=== PATIENT | female | born 1970 | race Caucasian/White ===

== ENCOUNTER 2018-09-25 17:04 | Emergency (ER) | payer OTHER ==
[~2018-09-25] VITALS: Ht 152.4 cm; Wt 56.7 kg
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
--- NOTE | 2018-09-25 17:28 | NUR ---
DR CURTIS AT BEDSIDE
[2018-09-25] MEDS ORDERED: HYDROCODONE/APAP 5/325MG 1 EACH TABLET ONE (17:43)
[2018-09-25] MEDS ORDERED: CLINDAMYCIN HCL 150 MG CAPSULE PO ONE ×2 (17:43→18:00)
[2018-09-25] MEDS ORDERED: HYDROCODONE/APAP 5/325MG 1 EACH TABLET PO ONE (18:00)
[2018-09-25 18:19] VITALS: BP 142/98
--- NOTE | 2018-09-25 18:19 | NUR ---
Patient discharged to home in stable condition. Written and verbal after care instructions given. Patient verbalizes understanding of instruction.
== END 2018-09-25 18:20 | disposition home or self-care (01) ==
LOC: ER 17:07
DX: L03.116 Cellulitis of left lower limb (principal); Z87.442 Personal history of urinary calculi
CPT/HCPCS: 99283; A4606; Z7610

== ENCOUNTER 2021-08-12 12:58 | Emergency (ER) | payer OTHER ==
[~2021-08-12] VITALS: Ht 162.6 cm; Wt 59.0 kg
[2021-08-12 13:10] VITALS: BP 132/80
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
--- NOTE | 2021-08-12 13:37 | NUR ---
RADIOLOGY AT BEDSIDE
--- NOTE | 2021-08-12 14:00 | NUR ---
LOOKED FOR PT. NOT IN ROOM.
[2021-08-12] MEDS ORDERED: IBUP-1955 PO (15:44)
[2021-08-12] MEDS ORDERED: KETOROLAC TROMETHAMINE INJ 30 MG/ML VIAL IM ONE (16:00)
== END 2021-08-12 14:30 | disposition left against medical advice (07) ==
LOC: ER 13:01
DX: S20.211A Contusion of right front wall of thorax, initial encounter (principal); W01.0XXA Fall on same level from slipping, tripping and stumbling without subsequent striking against object, initial encounter; Y93.89 Activity, other specified; Y92.89 Other specified places as the place of occurrence of the external cause; Y99.8 Other external cause status
CPT/HCPCS: 71100-TC

== ENCOUNTER 2021-08-17 23:54 | Emergency (ER) | payer OTHER ==
[~2021-08-17] VITALS: Ht 162.6 cm; Wt 58.1 kg
[~2021-08-17 23:54] MED LIST: IBUP-1955 PO
[2021-08-18 01:13] VITALS: BP 160/96
--- NOTE | 2021-08-18 01:22 | NUR ---
Patient discharged to home in stable condition. Written and verbal after care instructions given. Patient verbalizes understanding of instruction.
== END 2021-08-18 01:32 | disposition home or self-care (01) ==
LOC: ER 23:58
DX: S20.211A Contusion of right front wall of thorax, initial encounter (principal); F41.9 Anxiety disorder, unspecified; F12.90 Cannabis use, unspecified, uncomplicated; Z87.442 Personal history of urinary calculi; W01.0XXA Fall on same level from slipping, tripping and stumbling without subsequent striking against object, initial encounter; Y93.89 Activity, other specified; Y92.89 Other specified places as the place of occurrence of the external cause; Y99.8 Other external cause status